=== PATIENT | male | born 1965 | race Caucasian/White ===

== ENCOUNTER 2017-04-23 08:18 | Outpatient (CLI) | payer OTHER ==
--- NOTE | 2017-04-23 12:03 | Ultrasound Report ---
RIGHT UPPER QUADRANT ULTRASOUND: 04/23/2017 CLINICAL INDICATION: Abnormal LFTs. TECHNIQUE: Real-time scanning was performed with senior human resources representative static images obtained. FINDINGS: The liver measures 17.6 cm. Hepatic echogenicity is diffusely increased, compatible with fatty infiltration. Tiny cysts are noted. No suspicious solid mass or intrahepatic biliary dilatati on is seen. The common bile duct measures 3 mm. The gallbladder is normal. The right kidney measur es 11.5 cm, and demonstrates no hydronephrosis. No free fluid is present. IMPRESSION: FATTY INFILTRATION OF THE LIVER. JOB #: [id number] EXT JOB #:[id number]
== END 2017-04-23 08:19 | disposition home or self-care (01) ==
LOC: DI 08:18
PROVIDERS: ATTEND Family Medicine
DX: K76.0 Fatty (change of) liver, not elsewhere classified (principal)
CPT/HCPCS: 76705

== ENCOUNTER 2021-07-26 09:38 | Outpatient (CLI) | payer MEDICAID ==
[2021-07-26 12:39] LABS: BASOPHILS # (AUTO) 0.1 10^3/uL (0.0-0.1); BASOPHILS % (AUTO) 0.8 %; EOSINOPHILS # (AUTO) 0.4 10^3/uL (0.0-0.7); EOSINOPHILS % (AUTO) 5.5 %; LYMPHOCYTES # (AUTO) 2.5 10^3/uL (1.5-3.5); LYMPHOCYTES % (AUTO) 33.5 %; MEAN CORPUSCULAR HEMOGLOBIN 28.7 pg (27.0-31.0); MEAN CORPUSCULAR HGB CONC 31.8 g/dL (32.0-36.0); MEAN CORPUSCULAR VOLUME 90.3 fL (80.0-94.0); MEAN PLATELET VOLUME 10.8 fL (7.4-11.4); MONOCYTES # (AUTO) 0.9 10^3/uL (0.0-1.0); MONOCYTES % (AUTO) 12.2 %; NEUTROPHILS # (AUTO) 3.5 10^3/uL (1.5-6.6); NEUTROPHILS % (AUTO) 47.3 %; PLT - PLATELET COUNT 215 10^3/uL (130-450); RED BLOOD COUNT 4.87 10^6/uL (4.70-6.10); RED CELL DISTRIBUTION WIDTH 14.2 % (12.0-15.0); WHITE BLOOD COUNT 7.5 x10^3/uL (4.8-10.8)
[2021-07-26 13:13] LABS: ALBUMIN 3.9 g/dL (3.2-5.5); ALKALINE PHOSPHATASE 50 IU/L (42-121); ALT ALANINE AMINOTRANSFERASE 35 IU/L (10-60); AST ASPARTATE AMINOTRANSFERASE 27 IU/L (10-42); BILIRUBIN,TOTAL 0.6 mg/dL (0.2-1.0); BUN - BLOOD UREA NITROGEN 8 mg/dL (6-20); CALCIUM 9.4 mg/dL (8.5-10.3); CARBON DIOXIDE - CO2 24 mmol/L (21-32); CHLORIDE 105 mmol/L (101-111); CHOL/HDL RATIO 8.4 (<5.0); CHOLESTEROL 269 mg/dL; CREATININE 0.9 mg/dL (0.6-1.2); GFR - MDRD 88 (>89); GLUCOSE 122 mg/dL (70-100); HDL CHOLESTEROL 32 mg/dL; LDL CHOLESTEROL,CALCULATED 186 mg/dL; LDL/HDL RATIO 5.8 (<3.6); POTASSIUM 4.2 mmol/L (3.5-5.0); SODIUM 138 mmol/L (135-145); TRIGLYCERIDES 255 mg/dL; VLDL CHOLESTEROL 51 mg/dL
[2021-07-26 14:03] LABS: ESTIMATED AVERAGE GLUCOSE 157 mg/dL (70-100); HEMOGLOBIN A1c% 7.1 % (4.27-6.07)
[2021-07-26 19:25] LABS: CREATININE,URINE 217.7 mg/dL; MICROALBUM/CREATININE RATIO,UR 19.3 ug/mg (<30.0); MICROALBUMIN,URINE 4.2 mg/dL (0-300.0)
== END 2021-07-26 09:39 | disposition home or self-care (01) ==
LOC: LAB.N 09:38
PROVIDERS: ATTEND Family Medicine
DX: E11.9 Type 2 diabetes mellitus without complications (principal)
CPT/HCPCS: 36415; 80053; 80061; 82043; 82570; 83036; 83721; 85025

== ENCOUNTER 2021-08-27 08:00 | Outpatient (CLI) | payer MEDICAID ==
--- NOTE | 2021-08-27 14:21 | XRAY Report ---
PROCEDURE: Knee 4 View RT INDICATIONS: KNEE PAIN TECHNIQUE: 4 views of the right knee(s) were acquired. One view of the left knee. COMPARISON: None. FINDINGS: Bones: No fractures or dislocations. Tiny osteophytes. No suspicious bony lesions. Soft tissues: Trace joint effusion. No suspicious soft tissue calcifications. IMPRESSION: Mild right knee DJD. Trace joint effusion. Reviewed by: Pernell Johns MD on 08/27/2021 2:20 PM PDT Approved by: Pernell Johns MD on 08/27/2021 2:20 PM PDT Station ID: [id number]
== END 2021-08-27 23:59 ==
LOC: DI.WOS 08:00
PROVIDERS: ATTEND Physician Assistant
DX: M17.11 Unilateral primary osteoarthritis, right knee (principal); M25.461 Effusion, right knee

== ENCOUNTER 2021-09-23 13:12 | Outpatient (CLI) | payer MEDICAID ==
--- NOTE | 2021-09-23 17:30 | XRAY Report ---
PROCEDURE: Ankle 3 View RT INDICATIONS: ANKLE PAIN TECHNIQUE: 3 views of the ankle were acquired. COMPARISON: None. FINDINGS: Bones: No acute fractures or dislocations. Smooth, well-corticated osseous density adjacent to the p osterior malleolus. Ankle mortise is normally aligned. No suspicious bony lesions. Soft tissues: No tibiotalar joint effusion. Achilles tendon appears normal. IMPRESSION: Well corticated curvilinear osseous density adjacent to the posterior aspect of the post erior malleolus likely related to prior posterior malleolar fracture. Reviewed by: STUART Waterman on 09/23/2021 5:29 PM PDT Approved by: Jay Burks MD on 09/23/2021 5:29 PM PDT Station ID: [id number]
== END 2021-09-23 23:59 | disposition home or self-care (01) ==
LOC: DI.WOS 13:12
PROVIDERS: ATTEND Physician Assistant
DX: M25.571 Pain in right ankle and joints of right foot (principal)

== ENCOUNTER 2022-02-07 13:27 | Outpatient (CLI) | payer MEDICAID ==
--- NOTE | 2022-02-07 16:35 | Ultrasound Report ---
PROCEDURE: Head or Neck Soft Tissue INDICATIONS: SUPRACLAVICULAR LYMPHADENOPATHY TECHNIQUE: Real time scanning was performed of the neck region of interest, with image documentation . COMPARISON: None. FINDINGS: The supraclavicular regions or imaged bilaterally. In the subcutaneous layer, there are va gerardo, nonencapsulated, ill-defined areas of fat isoechoic to the adjacent subcutaneous fat. No increas ed or peripheral vascular flow. The right mass measures 4.1 x 3.5 x 1.8 cm. Left mass measures 3.6 x 3.4 x 1.3 cm. IMPRESSION: Ill-defined supraclavicular bilateral lipomas at the base of the neck. No adenopathy seen in the areas imaged. Reviewed by: Loren Banuelos MD on 02/07/2022 4:34 PM PDT Approved by: Loren Banuelos MD on 02/07/2022 4:34 PM PDT Station ID: [id number]
== END 2022-02-07 13:28 | disposition home or self-care (01) ==
LOC: DI 13:27
PROVIDERS: ATTEND Physician Assistant
DX: D17.0 Benign lipomatous neoplasm of skin and subcutaneous tissue of head, face and neck (principal)

== ENCOUNTER 2022-04-11 14:57 | Outpatient (CLI) | payer MEDICAID ==
--- NOTE | 2022-04-11 16:38 | XRAY Report ---
PROCEDURE: Hips 2V BILAT INDICATIONS: BACK PAIN,LUMBAR LT HIP PAIN TECHNIQUE: 3 views of the bilateral hips were acquired. COMPARISON: None. FINDINGS: Bones: No fractures or dislocations. No suspicious bony lesions. The visualized pelvic ring appear s intact. There is mild hip joint space narrowing symmetric bilaterally. Soft tissues: No suspicious soft tissue calcifications or masses. IMPRESSION: No trauma found, mild degenerative hip joint space narrowing present bilaterally. Soft tissues appear normal. Reviewed by: Man Jimenez MD on 04/11/2022 4:37 PM PDT Approved by: Man Jimenez MD on 04/11/2022 4:37 PM PDT Station ID: [id number]
--- NOTE | 2022-04-11 16:39 | XRAY Report ---
PROCEDURE: Lumbar Spine 2 View INDICATIONS: BACK PAIN,LUMBAR LT HIP PAIN TECHNIQUE: 2 views of the lumbar spine were acquired. COMPARISON: None. FINDINGS: Bones: 5 [id number] vertebrae are present. There is normal bony alignment. No vertebral body compression fractures. No suspicious bony lesions. On the lateral view note is made of mild degenera tive disc height reduction at L4-5 and mild to moderate such degenerative change at L5-S1. Soft tissues: Overlying bowel gas pattern is normal. No suspicious soft tissue calcifications. IMPRESSION: Degenerative disc disease is present at L4-5 and to a slightly greater degree at L5-S1 w ithout associated significant subluxation. Mild facet osteoarthritis also likely is present at these 2 levels. No compression fracture found. Reviewed by: Man Jimenez MD on 04/11/2022 4:38 PM PDT Approved by: Man Jimenez MD on 04/11/2022 4:38 PM PDT Station ID: [id number]
== END 2022-04-11 14:58 | disposition home or self-care (01) ==
LOC: DI 14:57
PROVIDERS: ATTEND Physician Assistant
DX: M51.36 Other intervertebral disc degeneration, lumbar region (principal); M51.37 Other intervertebral disc degeneration, lumbosacral region; M47.816 Spondylosis without myelopathy or radiculopathy, lumbar region; M47.817 Spondylosis without myelopathy or radiculopathy, lumbosacral region; M16.0 Bilateral primary osteoarthritis of hip

== ENCOUNTER 2023-06-05 09:21 | Outpatient (CLI) | payer MEDICAID ==
[2023-06-05 11:56] LABS: BASOPHILS % (AUTO) 0.4 %; EOSINOPHILS # (AUTO) 0.2 10^3/uL (0.0-0.7); EOSINOPHILS % (AUTO) 2.5 %; HCT - HEMATOCRIT 48.8 % (42.0-52.0); HGB - HEMOGLOBIN 15.7 g/dL (14.0-18.0); LYMPHOCYTES # (AUTO) 2.2 10^3/uL (1.5-3.5); LYMPHOCYTES % (AUTO) 29.3 %; MEAN CORPUSCULAR HEMOGLOBIN 28.9 pg (27.0-31.0); MEAN CORPUSCULAR HGB CONC 32.2 g/dL (32.0-36.0); MEAN CORPUSCULAR VOLUME 89.7 fL (80.0-94.0); MEAN PLATELET VOLUME 10.7 fL (7.4-11.4); MONOCYTES # (AUTO) 0.9 10^3/uL (0.0-1.0); MONOCYTES % (AUTO) 12.3 %; NEUTROPHILS # (AUTO) 4.1 10^3/uL (1.5-6.6); NEUTROPHILS % (AUTO) 54.7 %; PLT - PLATELET COUNT 265 10^3/uL (130-450); RED BLOOD COUNT 5.44 10^6/uL (4.70-6.10); RED CELL DISTRIBUTION WIDTH 12.7 % (12.0-15.0); WHITE BLOOD COUNT 7.5 x10^3/uL (4.8-10.8)
[2023-06-05 12:07] LABS: ESTIMATED AVERAGE GLUCOSE 143 mg/dL (70-100); HEMOGLOBIN A1c% 6.6 % (4.27-6.07)
[2023-06-05 12:22] LABS: THYROID STIMULATING HORMONE 1.78 uIU/mL (0.34-5.60)
[2023-06-05 12:23] LABS: ALBUMIN 4.6 g/dL (3.2-5.5); ALBUMIN/GLOBULIN RATIO 1.4 (1.0-2.2); ALKALINE PHOSPHATASE 46 IU/L (42-121); ALT ALANINE AMINOTRANSFERASE 50 IU/L (10-60); AST ASPARTATE AMINOTRANSFERASE 29 IU/L (10-42); BILIRUBIN,TOTAL 0.8 mg/dL (0.2-1.0); BUN - BLOOD UREA NITROGEN 17 mg/dL (6-20); CALCIUM 9.6 mg/dL (8.5-10.3); CARBON DIOXIDE - CO2 26 mmol/L (21-32); CHLORIDE 102 mmol/L (101-111); CHOL/HDL RATIO 7.5 (<5.0); CHOLESTEROL 262 mg/dL; GFR - MDRD 78 (>89); GLUCOSE 124 mg/dL (74-104); HDL CHOLESTEROL 35 mg/dL; POTASSIUM 4.4 mmol/L (3.5-4.5); SODIUM 136 mmol/L (135-145); TOTAL PROTEIN 7.8 g/dL (6.4-8.9); TRIGLYCERIDES 425 mg/dL (48-352)
== END 2023-06-05 09:22 | disposition home or self-care (01) ==
LOC: LAB.N 09:21
PROVIDERS: ATTEND Physician Assistant
DX: I10 Essential (primary) hypertension (principal); E11.9 Type 2 diabetes mellitus without complications; E78.5 Hyperlipidemia, unspecified; Z12.5 Encounter for screening for malignant neoplasm of prostate
CPT/HCPCS: 36415; 80053; 80061; 83036; 83721; 84153; 84443; 85025